=== PATIENT | female | born 1990 | race Caucasian/White ===

== ENCOUNTER 2016-05-31 02:25 | Emergency (ER) | payer OTHER ==
[~2016-05-31] VITALS: Ht 165.1 cm; Wt 132.6 kg
[2016-05-31 02:30] VITALS: BP 140/70
--- NOTE | 2016-05-31 04:56 | NUR ---
PT TAKEN TO ULTRASOUND FROM DEVENDRA
--- NOTE | 2016-05-31 05:14 | NUR ---
PT RETURN TO BED 8
--- NOTE | 2016-05-31 05:16 | NUR ---
Dr. Álvarez evaluating patient at bedside.
[2016-05-31] MEDS ORDERED: LIDOCAINE 1% 500 MG/50 ML VIAL INJ ONE (05:20)
--- NOTE | 2016-05-31 05:32 | NUR ---
26Y F BIB FAMILY C/O OF VAGINAL PAIN X 3 DAYS. DENIES BLEEDING. ERMD AWARE OF PTS CONDITION.
--- NOTE | 2016-05-31 05:55 | NUR ---
DR. SRIVASTAVA AT BEDSIDE FOR PELVIC EXAM WITH FEMALE [employer] [facility]
[2016-05-31] MEDS ORDERED: HYDROcodone/APAP 5/325 MG 1 TAB TAB PO ONE (06:10)
[2016-05-31] MEDS ORDERED: SULFAMETH/TRIMETH DS 800/160MG 1 TAB PO ONE (06:10)
[2016-05-31] MEDS ORDERED: SULFAMETH/TRIMETH DS 800/160MG 1 TAB ONE (06:19)
[2016-05-31 06:35] VITALS: BP 137/72
--- NOTE | 2016-05-31 06:35 | NUR ---
Patient discharged with v/s stable. Written and verbal after care instructions given and explained. Patient alert, oriented and verbalized understanding of instructions. Ambulatory with steady gait. All questions addressed prior to discharge. ID band removed. Patient advised to follow up with PMD. Rx of BACTRIM DS AND NORCO 5/325 given. Patient educated on indication of medication including possible reaction and side effects. Opportunity to ask questions provided and answered.
== END 2016-05-31 06:35 | disposition home or self-care (01) ==
LOC: MED 02:25
DX: N75.1 Abscess of Bartholin's gland (principal); R03.0 Elevated blood-pressure reading, without diagnosis of hypertension
CPT/HCPCS: 56420; 76856; 99284; J2001; Q0092

== ENCOUNTER 2016-06-02 10:05 | Emergency (ER) | payer OTHER ==
[~2016-06-02] VITALS: Ht 165.1 cm; Wt 131.1 kg
[2016-06-02 10:09] VITALS: BP 149/101
--- NOTE | 2016-06-02 10:15 | NUR ---
Patient ambulated to bed 3 at this time.
--- NOTE | 2016-06-02 10:28 | NUR ---
26/F TO ED FOR WOUND CHECK ON LEFT LABIA FOR ABSCESS. PT WAS TOLD TO RETURN TO ED FOR FOLOW UP. PAIN 5/. NO SIGNS OF INFECTION. LUNGS CLEAR BILAT. HR EVEN AND REGULAR. DENIES N/V/D. AAOX4. VSS. NO SIGNS OF DISTRESS.
--- NOTE | 2016-06-02 10:32 | NUR ---
REAGAN JACKMAN CHAPERONED DHIRAJ SULLIVAN FOR WOUND CHECK OF FEMALE PT AT THIS TIME.
[2016-06-02 10:38] VITALS: BP 149/101
--- NOTE | 2016-06-02 10:39 | NUR ---
Patient discharged with v/s stable. Written and verbal after care instructions given and explained. Patient verbalized understanding. Ambulatory with steady gait. All questions addressed prior to discharge. Advised to follow up with PMD.
== END 2016-06-02 10:39 | disposition home or self-care (01) ==
LOC: MED 10:05
DX: Z48.01 Encounter for change or removal of surgical wound dressing (principal); R03.0 Elevated blood-pressure reading, without diagnosis of hypertension